=== PATIENT | female | born 1995 | race Caucasian/White ===

== ENCOUNTER 2017-10-14 19:18 | Emergency (ER) | payer OTHER ==
[2017-10-14] MEDS ORDERED: Ketorolac INJ* 30 MG/ML 1 ML VIAL IV ONE (20:26)
[2017-10-14] MEDS ORDERED: NS 0.9% 1000 ML* 1,000 ML IV ONE (20:26)
--- NOTE | 2017-10-14 20:44 | ED ---
HPI Chest Pain - HPI Summary HPI Summary: This patient is a 22 year old F presenting to [facility] accompanied by her parents with a chief complaint of mid sternal chest pain with sudden movement and deep breaths for the past few days. Pain improved with laying down. Pain is 5/10 while laying still. Pain unchanged by eating. Reports SOB. Denies fever, chills , cough, LE pain or swelling, urinary change or changes in BM, and abdominal pain. Denies recent travel. 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 Patient called PCP two hours ago who recommended she come to the ED. Kavitha reports recent illness roughly two weeks ago. Patient take oral contraceptives. - History of Current Complaint Chief Complaint: EDChestWallPain Time Seen by Provider: 10/14/17 20:16 Hx Obtained From: Patient Onset/Duration: Started Days Ago Timing: Intermittent Pain Intensity: 5 Pain Scale Used: 0-10 Numeric Chest Pain Location: Mid Sternal Chest Pain Radiates: No Aggravating Factor(s): Movement, Deep Breaths Alleviating Factor(s): Other: - laying still Associated Signs and Symptoms: Positive: Shortness of Breath. Negative: Fever, Chills, Cough, Abdominal Pain, Calf Pain/Swelling - Allergy/Home Medications Allergies/Adverse Reactions: Allergies Allergy/AdvReac Type Severity Reaction Status Date / Time No Known Allergies Allergy Verified 04/13/15 13:01 PMH/Surg Hx/FS Hx/Imm Hx Endocrine/Hematology History: Denies: Hx Diabetes Cardiovascular History: Denies: Hx Hypertension, Hx Pacemaker/ICD History: Denies: Hx Dialysis, Hx Renal Disease Sensory History: Denies: Hx Hearing Aid Neurological History: Reports: Hx Spinal Cord Injury - spinal tumor removed Denies: Other Neuro Impairments/Disorders Psychiatric History: Denies: Hx Panic Disorder - Cancer History Cancer Type, Location and Year: spinal tumor - Surgical History Surgery Procedure, Year, and Place: Tumor removal T7-T12, [place] Infectious Disease History: No Infectious Disease History: Denies: Traveled Outside the [place] in Last 30 Days - Family History Known Family History: Negative: Respiratory Disease - Social History Occupation: Student Lives: Dormitory/Roommates Hx Tobacco Use: No Smoking Status (MU): Never Smoked Tobacco Review of Systems Negative: Fever, Chills Positive: Chest Pain Positive: Shortness Of Breath. Negative: Cough Negative: Abdominal Pain Positive: no symptoms reported Negative: Myalgia, Edema All Other Systems Reviewed And Are Negative: Yes Physical Exam - Summary Physical Exam Summary: General: well-appearing, no pain distress Skin: warm, color reflects adequate perfusion, dry Head: normal Eyes: EOMI, ANDRESSA ENT: normal Neck: supple, nontender Respiratory: CTA, breath sounds present Cardiovascular: RRR Abdomen: soft, nontender Bowel: present Musculoskeletal: normal, strength/ROM intact Neurological: sensory/motor intact, A&O x3 Psychological: affect/mood appropriate Triage Information Reviewed: Yes Vital Signs On Initial Exam: Initial Vitals Temp Pulse Resp BP Pulse Ox 97.5 F 136 20 110/74 98 10/14/17 19:49 10/14/17 19:49 10/14/17 19:49 10/14/17 19:49 10/14/17 19:49 Vital Signs Reviewed: Yes Diagnostics - Vital Signs Vital Signs Temp Pulse Resp BP Pulse Ox 10/14/17 19:49 97.5 F 136 20 110/74 98 - Laboratory Result Diagrams: 10/14/17 20:32 10/14/17 20:32 Lab Statement: Any lab studies that have been ordered have been reviewed, and results considered in the medical decision making process. - EKG 2037 Cardiac Rate: Tachycardia - 116 BPM EKG Rhythm: Sinus Tachycardia ST Segment: Normal Ectopy: None Chest Pain Course/Dx - Course Course Of Treatment: DISCUSSED LAB RESULTS WITH THE PATIENT AND FAMILY. PAIN DECREASED AFTER TORADOL IV. PATIENT REPORTS SHE IS ALWAY MILDLY TACHYCARDIC. I DISCUSSED TAKING IBUPROFEN AND F/U WITH PMD WITH RECHECK IF NOT IMPROVING OR WORSE. I DISCUSSED THE DDX TO INCLUDE CHEST WALL PAIN, PLEURISY AND PERICARDITIS POSSIBILITIES AND TO GET REEVALUATED IF SHE BECOMES SOB OR PAIN WORSENS OR CONTINUES. TROPONIN NEGATIVE AND NO ISCHEMIC CHANGES SEEN ON EKG. CTA CHEST REPORT PENDING AT SHIFT CHANGE. - Diagnoses Provider Diagnoses: Chest pain Discharge - Sign-Out/Discharge Documenting (check all that apply): Sign-Out Patient Signing out patient TO: Manuel Ashley - Discharge Plan Condition: Stable Disposition: HOME Patient Education Materials: Chest Pain (ED) Referrals: Ramona Jorgensen MD [Primary Care Provider] - Additional Instructions: FOLLOW UP WITH YOUR DOCTOR. TAKE IBUPROFEN 600MG THREE TIMES A DAY NEEDED. GET RECHECKED FOR ANY WORSENING OF YOUR CONDITION; WORSE OF CONTINUED PAIN, FEVER, SHORTNESS OF BREATH OR QUESTIONS OR CONCERNS. - Billing Disposition and Condition Condition: STABLE Disposition: Home - Attestation Statements Document Initiated by Lisa: Yes Documenting Scribe: ESTEBAN Provider For Whom Lisa is Documenting (Include Credential): LUIS Fung Attestation: ESTEBAN Al scribed for SHEPHERD on 10/14/17 at 2224. Scribe Documentation Reviewed: Yes Provider Attestation: The documentation as recorded by the ESTEBAN fung accurately reflects the service I personally performed and the decisions made by LUIS diego
[2017-10-14 20:49] LABS: ABS Basophils 0 10^3/ul (0-0.2); ABS Eosinophils 0.1 10^3/ul (0-0.6); ABS Monocytes 0.7 10^3/ul (0-0.8); ABS Neutrophils 3.4 10^3/ul (1.5-7.7); ABS Nucleated RBC 0 10^3/ul; Hematocrit 43 % (35-47); Hemoglobin 14.7 g/dl (12.0-16.0); Lymphocyte % 19.6 % (25-47); Mean Corpuscular HGB Conc 34 g/dl (31-36); Mean Corpuscular Hemoglobin 28 pg (27-31); Mean Corpuscular Volume 83 fL (80-97); Nucleated Red Blood Cells % 0.2; Platelet Count 345 10^3/ul (150-450); Red Blood Count 5.21 10^6/ul (4.00-5.40); Red Cell Distribution Width 13 % (10.5-15); White Blood Count 5.2 10^3/ul (3.5-10.8)
[2017-10-14 20:58] LABS: INR 0.94 (0.77-1.02)
[2017-10-14 21:07] LABS: EGFR Non-African American 114.2 (>60)
[2017-10-14] MEDS ORDERED: Iohexol 350* (CONTRAST) 500 ML MDV IV ONE (21:27)
--- NOTE | 2017-10-14 22:34 | RAD ---
EXAM: CT Angiography Chest With Intravenous Contrast CLINICAL HISTORY: 22 years old, female; Pain; Chest pain; Prior surgery; Surgery date: 6+ months; Surgery type: Spinal tumor removal and spinal fusion; Additional info: Splinting sternal chest pain, HX t7-12 bony tumor TECHNIQUE: Axial computed tomographic angiography images of the chest with intravenous contrast using pulmonary embolism protocol. All CT scans at this facility use at least one of these dose optimization techniques: automated exposure control; mA and/or kV adjustment per patient size (includes targeted exams where dose is matched to clinical indication); or iterative reconstruction. MIP reconstructed images were created and reviewed. Coronal and sagittal reformatted images were created and reviewed. CONTRAST: 57 mL of OMNIPAQUE 300 administered intravenously. COMPARISON: No relevant prior studies available. FINDINGS: Pulmonary arteries: No evidence of acute pulmonary embolic disease. Aorta: No evidence of an aortic aneurysm or dissection. Lungs: No pulmonary consolidation. Linear opacity located in the lung bases which may represent areas of atelectasis and/or scarring. Pleural space: No pleural effusion. No pneumothorax. Heart: The heart is of normal size and appearance. No pericardial thickening or effusion. No evidence of RV dysfunction. Mediastinum: Soft tissue density located in the anterior mediastinum possibly representing residual thymic tissue. Bones/joints: No acute fracture. No dislocation. Soft tissues: Unremarkable. Lymph nodes: No mediastinal or hilar adenopathy. Tubes, lines and devices: Corpectomy of the T9 vertebral body with placement of a bone cage. Patient has had a posterior laminectomy of T9 and resection of the left proximal ninth rib. This region is bracketed by a pedicular screw and posterior keyanna device involving the T6, T7, T8, T10 and T11 vertebral bodies. The surgical construct appears intact. IMPRESSION: 1. No evidence of acute pulmonary embolic disease. No pulmonary consolidation. No evidence of a pneumothorax or pleural effusion. The aorta is normal in appearance. 2. The appearance of the corpectomy at T9 with spinal stabilization with a pedicular screw and posterior keyanna device appears intact. No paraspinal mass is detected. 3. 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 No evidence of a mediastinal mass. No sternal or parasternal abnormality.
--- NOTE | 2017-10-14 22:46 | ED ---
Progress - Progress Note Progress Note: 2046 pt is stable to be discharged. CTA chest results came back. - Results/Orders Results/Orders: CTA chest results - 1. No evidence of acute pulmonary embolic disease. No pulmonary consolidation. No evidence of a pneumothorax or pleural effusion. The aorta is normal in appearance. 2. The appearance of the corpectomy at T9 with spinal stabilization with a pedicular screw and posterior keyanna device appears intact. No paraspinal mass is detected. 3. 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 No evidence of a mediastinal mass. No sternal or parasternal abnormality. Re-Evaluation - Re-Evaluation First Eval Re-Evaluation Time: 22:42 Change: Improved Comment: Patient's CT scan does not show any evidence of coronary embolus or any other concerning finding. At this point she is stable for discharge and symptomatically treatment. Her physical exam at this time is benign, with no tenderness to palpation across the chest. I suspect her pain is coming from chest wall, perhaps some viral costochondritis. Course/Dx - Course Course Of Treatment: DISCUSSED LAB RESULTS WITH THE PATIENT AND FAMILY. PAIN DECREASED AFTER TORADOL IV. PATIENT REPORTS SHE IS ALWAY MILDLY TACHYCARDIC. I DISCUSSED TAKING IBUPROFEN AND F/U WITH PMD WITH RECHECK IF NOT IMPROVING OR WORSE. I DISCUSSED THE DDX TO INCLUDE CHEST WALL PAIN, PLEURISY AND PERICARDITIS POSSIBILITIES AND TO GET REEVALUATED IF SHE BECOMES SOB OR PAIN WORSENS OR CONTINUES. TROPONIN NEGATIVE AND NO ISCHEMIC CHANGES SEEN ON EKG. CTA CHEST REPORT PENDING AT SHIFT CHANGE. - Diagnoses Provider Diagnoses: Chest pain Discharge - Sign-Out/Discharge Documenting (check all that apply): Patient Departure, Receiving Sign-Out Receiving patient FROM: Jevon Lieberman - Discharge Plan Condition: Stable Disposition: HOME Patient Education Materials: Chest Pain (ED) Referrals: Ramona Jorgensen MD [Primary Care Provider] - Additional Instructions: FOLLOW UP WITH YOUR DOCTOR. TAKE IBUPROFEN 600MG THREE TIMES A DAY NEEDED. GET RECHECKED FOR ANY WORSENING OF YOUR CONDITION; WORSE OF CONTINUED PAIN, FEVER, SHORTNESS OF BREATH OR QUESTIONS OR CONCERNS. - Attestation Statements Document Initiated by Scribe: Yes Documenting Scribe: Trish Arias Provider For Whom Scribe is Documenting (Include Credential): Manuel Ashley MD. Scribe Attestation: ITrish, scribed for Manuel Ashley MD. on 10/14/17 at 1073.
[2017-10-14 23:06] VITALS: BP 113/76
== END 2017-10-14 23:05 | disposition home or self-care (01) ==
LOC: ED 19:18
DX: R07.9 Chest pain, unspecified (principal)
CPT/HCPCS: 36415; 71275; 80053; 82550; 82553; 83605; 83690; 84443; 84484; 84702; 85025; 85610; 85730; 86140; 93005; 96361; 96374; 96375; 99282; J1885; Q9967